=== PATIENT | male | born 1955 | race Caucasian/White ===

== ENCOUNTER 2016-08-24 20:08 | Emergency (ER) | payer BC ==
[~2016-08-24] VITALS: Ht 167.6 cm; Wt 111.1 kg
[2016-08-24 20:08] VITALS: BP 152/93; PULSE 72; RESP 20; TEMP 97.1; O2SAT 100
--- NOTE | 2016-08-24 20:08 | NUR ---
Patient to ER bed 8 to gown for evaluation. Side rails up. Report given to ALIYA LYNN.
--- NOTE | 2016-08-24 20:10 | NUR ---
PT IS AOX4, C/O PALPITATION X 1 WEEK. PT DESCRIBED IT THAT HIS HEART IS RUSHING AND IT COMES AND GOES AND ITS LIKE 4 TIMES IN A DAY AND PT DENIES ANY PAIN.
--- NOTE | 2016-08-24 20:30 | NUR ---
ER at bedside examining patient.
[2016-08-24 21:31] LABS: BASOPHILS % (AUTO) 0.6 % (0.0-2.0); EOSINOPHILS # (AUTO) 0.3 K/uL (0.0-0.4); EOSINOPHILS % (AUTO) 4.4 % (0.0-4.0); HEMATOCRIT 36.9 % (36-54); HEMOGLOBIN 12.7 g/dL (14.0-18.0); LYMPHOCYTES # (AUTO) 2.5 K/uL (1.0-5.5); LYMPHOCYTES % (AUTO) 36.3 % (20.5-51.5); MEAN CORPUSCULAR HEMOGLOBIN 29 pg (27-31); MEAN CORPUSCULAR HGB CONC 35 % (32-36); MEAN CORPUSCULAR VOLUME 85 fL (79.0-98.0); MONOCYTES # (AUTO) 0.7 K/uL (0.0-1.0); MONOCYTES % (AUTO) 10.5 % (1.7-9.3); NEUTROPHILS # (AUTO) 3.4 K/uL (1.8-7.7); NEUTROPHILS % (AUTO) 48.2 % (40.0-70.0); PLATELET COUNT (AUTO) 214 K/uL (130-430); RED BLOOD CELL COUNT(AUTO) 4.32 MIL/uL (4.2-6.2); RED CELL DISTRIBUTION WIDTH 13.5 % (9.0-15.0); WHITE BLOOD COUNT (AUTO) 6.9 K/uL (4.8-10.8)
[2016-08-24 21:40] LABS: CREATININE 0.99 mg/dL (0.55-1.30); POTASSIUM 3.7 mmol/L (3.5-5.1)
[2016-08-24 21:45] LABS: ALBUMIN 3.7 g/dL (3.4-4.8); TOTAL BILIRUBIN 0.3 mg/dL (0.0-1.0)
[2016-08-24 21:46] LABS: PROTHROMBIN TIME 10.7 SECS (9.5-12.5)
[2016-08-24 23:10] VITALS: BP 158/86; PULSE 87; RESP 16; TEMP 97.1; O2SAT 100
--- NOTE | 2016-08-24 23:10 | NUR ---
Patient given written and verbal discharge instructions and verbalizes understanding. ER MD discussed with patient the results and treatment provided. Patient in stable condition. ID arm band removed. NO Rx of given. Patient educated on pain management and to follow up with PMD. Pain Scale 0/10. Opportunity for questions provided and answered.
== END 2016-08-24 23:10 | disposition home or self-care (01) ==
LOC: SED 20:08
DX: I10 Essential (primary) hypertension (principal)
CPT/HCPCS: 36415; 71010; 80053; 80061; 83880; 84484; 85025; 85379; 85610-TC; 85730-TC; 93005; 99285